=== PATIENT | female | born 1970 | race Hispanic/Latino ===

== ENCOUNTER 2017-08-28 10:58 | Emergency (ER) | payer BC ==
[2017-08-28] MEDS ORDERED: CATAPRES PO ONE (11:34)
--- NOTE | 2017-08-28 11:54 | Emergency Department Report ---
HPI - General Chief Complaint: Dizziness Time Seen by Provider: 08/28/17 11:34 - HPI HPI: Room 3 The patient is a 46-year-old female presenting with a chief complaint of near syncope and numbness. The patient states she was sitting on a chair at work in her usual state of health when she began to feel so she was about to pass out. The patient states her hearing "got weird" as if she was in a barrel, she developed tunnel vision and felt flushed. Patient states she sat down on the floor and the symptoms resolved after total approximate 4-5 minutes. The patient states she then developed left upper extremity paresthesia and numbness to both sides of her face. Patient denied dysarthria, dysphagia or lower extremity paresthesia. Patient denies chest pain, shortness of breath or other losing consciousness. Patient states she has a headache. The patient states she was diagnosed with borderline hypertension but never started on medication in the past Location: [See above] Duration: [See above] Quality: Headache, paresthesia, see above Severity: Moderate Modifying factors: [see above] Context: [see above] Mode of transportation: [not driving] ED Past Medical Hx - Past Medical History Hx Headaches / Migraines: Yes - Surgical History Past Surgical History?: Yes Additional Surgical History: Hysterectomy - Family History Family history: no significant - Social History Smoking Status: Former Smoker (none times years) Substance Use Type: None (denies illicit drug use) - Medications Home Medications: Home Medications Medication Instructions Recorded Confirmed Last Taken Type Cetirizine HCl [Allergy Relief] 10 mg PO DAILY 08/28/17 08/28/17 Unknown History Ibuprofen/Diphenhydramine Cit [Ra 1 each PO HS PRN 08/28/17 08/28/17 Unknown History Ibuprofen Pm Caplet] ED Review of Systems ROS: Stated complaint: NUMBNESS TO FACE AND ARM Other details as noted in HPI Eyes: vision change ENT: other (hearing change) Respiratory: denies: shortness of breath Cardiovascular: denies: chest pain Endocrine: flushing Neurological: headache, numbness, other (near syncopal) Physical Exam - Physical Exam Vital Signs: Vital Signs 08/28/17 08/28/17 11:02 11:11 Temperature 98.4 F Pulse Rate 84 84 Respiratory 18 Rate Blood Pressure 211/104 O2 Sat by Pulse 100 Oximetry Physical Exam: GENERAL: The patient is well-developed well-nourished female sitting on stretcher not appearing to be in acute distress. [] HEENT: Normocephalic. Atraumatic. Extraocular motions are intact. Patient has moist mucous membranes. NECK: Supple. No meningitic signs are noted. Trachea midline CHEST/LUNGS: Clear to auscultation. There is no respiratory distress noted. HEART/CARDIOVASCULAR: Regular. There is no tachycardia. There is no gallop rub or murmur. ABDOMEN: Abdomen is soft, nontender. Patient has normal bowel sounds. There is no abdominal distention. SKIN: There is no rash. There is no edema. There is no diaphoresis. NEURO: The patient is awake, alert, and oriented. The patient is cooperative. Cranial nerves II through XII grossly intact with exception of decreased sensation bilateral V1, V2, V3. No drift. Moves all extremity as well. Patient able to hold lower extremities at 30 for 5 second count. The patient has normal speech MUSCULOSKELETAL: There is no evidence of acute injury. NIHSS= 1 LOC a. Alert= 0 Not alert but arousable to minor stimuli=1 Not alert requires repeated or strong stimuli to move= 2 Responds only reflex motor or unresponsive=3 b. asks month and age answers both correctly= 0 answers one correctly= 1 answers neither correctly= 2 Best Gaze normal= 0 abnormal in one or both but forced deviation or total paresis absent= 1 forced deviation or total gaze paresis= 2 Visual no visual loss= 0 partial hemianopia= 1 complete hemianopia= 2 bilateral hemianopia= 3 Facial Palsy normal= 0 minor paralysis= 1 partial paralysis= 2 complete paralysis= 3 Motor Arm no drift= 0 drift before 10 secs but doesnt hit bed= 1 some effort against gravity= 2 no effort against gravity= 3 no movement= 4 Motor leg no drift= 0 drift before 5 secs but doesnt hit bed= 1 drifts to bed before 5 secs= 2 no effort against gravity= 3 no movement= 4 Limb ataxia absent=0 present in one limb= 1 present in two limbs= 2 Sensory normal= 0 (+)mild sensory loss= 1 severe (unaware of being touched)= 2 Best language mild/some loss of fluency= 1 severe= 2 mute= 3 Dysarthria normal= 0 slurs some words= 1 severe/unintelligible= 2 Extinction and Inattention no abnormality= 0 visual, tactile, auditory or personal inattention= 1 profound (doesnt recognize own hand or orients to only one side= 2 ED Course Vital Signs 08/28/17 08/28/17 11:02 11:11 Temperature 98.4 F Pulse Rate 84 84 Respiratory 18 Rate Blood Pressure 211/104 O2 Sat by Pulse 100 Oximetry - Reevaluation(s) Reevaluation #1: 08/28/17 13:29 Patient's blood pressure is improved (systolic blood pressure 130s) the patient states her symptoms have improved but not completely resolved. Patient states she still has some facial paresthesia. Will admit the patient to the hospital ED Medical Decision Making - Lab Data Result diagrams: 08/28/17 11:57 08/28/17 11:57 Laboratory Tests 08/28/17 08/28/17 08/28/17 11:57 11:57 11:57 WBC 6.2 RBC 4.58 Hgb 13.3 Hct 40.2 MCV 88 MCH 29 MCHC 33 RDW 12.6 L Plt Count 307 Lymph % (Auto) 24.6 Smith % (Auto) 8.4 H Eos % (Auto) 2.2 Baso % (Auto) 1.7 Lymph # 1.5 Smith # 0.5 Eos # 0.1 Baso # 0.1 Seg Neutrophils % 63.1 Seg Neutrophils # 3.9 Sodium 139 Potassium 4.3 Chloride 103.3 Carbon Dioxide 23 Anion Gap 17 BUN 10 Creatinine 0.7 Estimated GFR > 60 BUN/Creatinine Ratio 14 Glucose 83 Calcium 8.7 Total Creatine Kinase 80 CK-MB (CK-2) < 1.0 CK-MB (CK-2) Rel Index 1.2 Troponin T < 0.010 TSH 1.710 Free T4 1.13 Laboratory Tests 08/28/17 08/28/17 08/28/17 11:45 11:57 11:57 WBC 6.2 RBC 4.58 Hgb 13.3 Hct 40.2 MCV 88 MCH 29 MCHC 33 RDW 12.6 L Plt Count 307 Lymph % (Auto) 24.6 Smith % (Auto) 8.4 H Eos % (Auto) 2.2 Baso % (Auto) 1.7 Lymph # 1.5 Smith # 0.5 Eos # 0.1 Baso # 0.1 Seg Neutrophils % 63.1 Seg Neutrophils # 3.9 Sodium 139 Potassium 4.3 Chloride 103.3 Carbon Dioxide 23 Anion Gap 17 BUN 10 Creatinine 0.7 Estimated GFR > 60 BUN/Creatinine Ratio 14 Glucose 83 Calcium 8.7 Total Creatine Kinase 80 CK-MB (CK-2) < 1.0 CK-MB (CK-2) Rel Index 1.2 Troponin T < 0.010 TSH Free T4 Urine Color Yellow Urine Turbidity Clear Urine pH 6.0 Ur Specific [place] 1.013 Urine Protein <15 mg/dl Urine Glucose (UA) Neg Urine Ketones Neg Urine Blood Sm Urine Nitrite Neg Urine Bilirubin Neg Urine Urobilinogen < 2.0 Ur Leukocyte Esterase Mod Urine WBC (Auto) 1.0 Urine RBC (Auto) 2.0 U Epithel Cells (Auto) 4.0 Urine Bacteria (Auto) 1+ Urine Mucus Few 08/28/17 11:57 WBC RBC Hgb Hct MCV MCH MCHC RDW Plt Count Lymph % (Auto) Smith % (Auto) Eos % (Auto) Baso % (Auto) Lymph # Smith # Eos # Baso # Seg Neutrophils % Seg Neutrophils # Sodium Potassium Chloride Carbon Dioxide Anion Gap BUN Creatinine Estimated GFR BUN/Creatinine Ratio Glucose Calcium Total Creatine Kinase CK-MB (CK-2) CK-MB (CK-2) Rel Index Troponin T TSH 1.710 Free T4 1.13 Urine Color Urine Turbidity Urine pH Ur Specific [place] Urine Protein Urine Glucose (UA) Urine Ketones Urine Blood Urine Nitrite Urine Bilirubin Urine Urobilinogen Ur Leukocyte Esterase Urine WBC (Auto) Urine RBC (Auto) U Epithel Cells (Auto) Urine Bacteria (Auto) Urine Mucus - EKG Data -: EKG Interpreted by Ms EKG shows normal: sinus rhythm Rate: normal - EKG Data When compared to previous EKG there are: previous EKG unavailable Interpretation: other (no ischemic changes seen) - Radiology Data Radiology results: report reviewed (CT head), image reviewed (CT head) [facility] [address] [place] [address] Cat Scan Report Signed Patient: GUILHERME SAUNDERS MR#: [id number] : 1970 Acct:[id number] Age/Sex: 46 / F ADM Date: 08/28/17 Loc: ED Attending Dr: Ordering Physician: ELVIN DURBIN MD Date of Service: 08/28/17 Procedure(s): CT head/brain wo con Accession Number(s): [id number] cc: ELVIN DURBIN MD CT HEAD WITHOUT CONTRAST INDICATION: Headache, hypertension, facial and left arm paresthesia. COMPARISON: None similar at this institution. FINDINGS: Noncontrast head CT demonstrates normal ventricles and sulci without acute or recent infarct, hemorrhage, mass effect or midline shift. No abnormal extra-axial fluid collections. Posterior fossa structures and basilar cisterns appear within normal limits. Symmetric eye globes. Clear paranasal sinuses and mastoid air cells. Intact calvarium. Normal overlying scalp soft tissues. Few radiopaque dental material incidentally noted. CONCLUSION: No acute intracranial CT abnormality, as described. Thank you for the opportunity to participate in this patient's care. Transcribed By: RS Dictated By: ASTRID OLIVARES MD Electronically Authenticated By: ASTRID OLIVARES MD Signed Date/Time: 08/28/17 1203 DD/ 1200 TD/TT: 08/28/17 1203 - Differential Diagnosis hypertensive urgency, CVA, TIA, intracranial hemorrhage Critical care attestation.: If time is entered above; I have spent that time in minutes in the direct care of this critically ill patient, excluding procedure time. ED Disposition Clinical Impression: Hypertension, Facial numbness, Left arm numbness, Headache Disposition: OP ADMIT IP TO THIS HOSP Is pt being admited?: Yes Does the pt Need Aspirin: Yes Condition: Fair Instructions: Hypertension (ED) Referrals: PRIMARY CARE, [Primary Care Provider] - 3-5 Days Time of Disposition: 13:30 (hospitalist notified (Dr Rhodes))
[2017-08-28] MEDS ORDERED: NORCO 5/325 PO ONE (11:58)
--- NOTE | 2017-08-28 12:08 | Cat Scan Report ---
CT HEAD WITHOUT CONTRAST INDICATION: Headache, hypertension, facial and left arm paresthesia. COMPARISON: None similar at this institution. FINDINGS: Noncontrast head CT demonstrates normal ventricles and sulci without acute or recent infarct, hemorrhage, mass effect or midline shift. No abnormal extra-axial fluid collections. Posterior fossa structures and basilar cisterns appear within normal limits. Symmetric eye globes. Clear paranasal sinuses and mastoid air cells. Intact calvarium. Normal overlying scalp soft tissues. Few radiopaque dental material incidentally noted. CONCLUSION: No acute intracranial CT abnormality, as described. Thank you for the opportunity to participate in this patient's care.
[2017-08-28 12:43] LABS: Basophils # (Auto) 0.1 K/mm3 (0.0-0.1); Basophils % (Auto) 1.7 % (0.0-1.8); Eosinophils # (Auto) 0.1 K/mm3 (0.0-0.4); Eosinophils % (Auto) 2.2 % (0.0-4.3); Hematocrit 40.2 % (30.3-42.9); Hemoglobin 13.3 gm/dl (10.1-14.3); Lymphocytes # (Auto) 1.5 K/mm3 (1.2-5.4); Lymphocytes % (Auto) 24.6 % (13.4-35.0); Mean Corpuscular HGB Conc 33 % (30-34); Mean Corpuscular Hemoglobin 29 pg (28-32); Mean Corpuscular Volume 88 fl (79-97); Monocytes # (Auto) 0.5 K/mm3 (0.0-0.8); Monocytes % (Auto) 8.4 % (0.0-7.3); Platelet Count 307 K/mm3 (140-440); Red Blood Count 4.58 M/mm3 (3.65-5.03); Red Cell Distribution Width 12.6 % (13.2-15.2)
[2017-08-28 13:07] LABS: BUN/Creatinine Ratio 14; Blood Urea Nitrogen 10 mg/dL (7-17); Calcium 8.7 mg/dL (8.4-10.2); Hemolysis Index 9
[2017-08-28 13:09] LABS: Free T4 (Free Thyroxine) 1.13 ng/dL (0.76-1.46)
[2017-08-28 13:28] LABS: Creatine Kinase MB < 1.0 ng/mL (0.0-4.0)
[2017-08-28 13:30] LABS: Bacteria,Urine 1+ /HPF (Negative); Bilirubin,Urine NEG (Negative); Blood,Urine SM (Negative); Color,Urine Yellow (Yellow); Mucus,Urine FEW /HPF; Protein,Urine <15 mg/dL mg/dL (Negative); Urobilinogen,Urine < 2.0 mg/dL (<2.0)
[2017-08-28] MEDS ORDERED: ASPIRIN PO ONE (13:31)
--- NOTE | 2017-08-28 14:26 | Event Note ---
Date: 08/28/17
[2017-08-28] MEDS ORDERED: ASPIRIN ONE (14:27)
[2017-08-28 15:30] VITALS: BP 122/88
[2017-08-28 15:35] LABS: Amphetamine Screen,Urine PRESUMPTIVE NEGATIVE; Benzodiazepines Screen,Urine PRESUMPTIVE NEGATIVE; Cannabinoid Screen,Urine PRESUMPTIVE NEGATIVE; Cocaine Screen,Urine PRESUMPTIVE NEGATIVE; Methadone Screen,Urine PRESUMPTIVE NEGATIVE; Opiate Screen,Urine PRESUMPTIVE NEGATIVE
== END 2017-08-28 14:40 | disposition admitted as inpatient to this hospital (09) ==
LOC: ED 10:58 → 4A 13:44 → UNDOADMIN 13:44 → ED 14:40
DX: I10 Essential (primary) hypertension (principal); R20.0 Anesthesia of skin; R51 Headache
CPT/HCPCS: 36415; 70450; 80048; 80307; 81001; 82550; 82553; 84439; 84443; 84484; 85025; 93005; 93010

== ENCOUNTER 2017-09-01 13:27 | Emergency (ER) | payer BC ==
[2017-09-01 14:18] LABS: Basophils # (Auto) 0.1 K/mm3 (0.0-0.1); Basophils % (Auto) 0.7 % (0.0-1.8); Eosinophils # (Auto) 0.1 K/mm3 (0.0-0.4); Eosinophils % (Auto) 1.2 % (0.0-4.3); Hematocrit 41.2 % (30.3-42.9); Hemoglobin 14.2 gm/dl (10.1-14.3); Lymphocytes # (Auto) 2.2 K/mm3 (1.2-5.4); Lymphocytes % (Auto) 24.8 % (13.4-35.0); Mean Corpuscular HGB Conc 34 % (30-34); Mean Corpuscular Hemoglobin 30 pg (28-32); Mean Corpuscular Volume 87 fl (79-97); Monocytes # (Auto) 0.7 K/mm3 (0.0-0.8); Monocytes % (Auto) 7.4 % (0.0-7.3); Platelet Count 314 K/mm3 (140-440); Red Blood Count 4.75 M/mm3 (3.65-5.03); Red Cell Distribution Width 12.8 % (13.2-15.2)
[2017-09-01 14:27] LABS: BUN/Creatinine Ratio 18; Blood Urea Nitrogen 11 mg/dL (7-17); Calcium 8.8 mg/dL (8.4-10.2); Hemolysis Index 6
[2017-09-01] MEDS ORDERED: CATAPRES PO ONE (15:15)
[2017-09-01] MEDS ORDERED: TYLENOL PO ONE (16:09)
[2017-09-01] MEDS ORDERED: ASPIRIN PO ONE (19:01)
[2017-09-01 19:36] LABS: INR 0.92 (0.87-1.13)
[2017-09-01 19:37] LABS: Partial Thromboplastin Time 29.7 Sec. (24.2-36.6)
[2017-09-01 19:55] LABS: BUN/Creatinine Ratio 20; Blood Urea Nitrogen 10 mg/dL (7-17); Calcium 8.8 mg/dL (8.4-10.2); Hemolysis Index 18; Lipase 30 units/L (13-60)
[2017-09-01 20:22] LABS: Bilirubin,Urine NEG (Negative); Blood,Urine SM (Negative); Color,Urine Yellow (Yellow); Mucus,Urine 1+ /HPF; Protein,Urine <15 mg/dL mg/dL (Negative); Urobilinogen,Urine < 2.0 mg/dL (<2.0)
--- NOTE | 2017-09-01 20:57 | XRay Report ---
FINAL REPORT PROCEDURE: XR CHEST 1V AP TECHNIQUE: Chest radiograph anteroposterior view. CPT 11295 HISTORY: Chest Pain COMPARISON: No prior studies are available for comparison. FINDINGS: Heart: Normal. Mediastinum/Vessels: Normal. Lungs/Pleural space: Lungs are clear and expanded. There are no infiltrates, effusions or pneumothoraces. Bony thorax: No acute osseous abnormality. Life support devices: None. IMPRESSION: No acute cardiopulmonary abnormality.
[2017-09-01 22:40] VITALS: BP 129/82
--- NOTE | 2017-09-01 22:56 | Emergency Department Report ---
ED Chest Pain HPI - General Chief Complaint: Chest Pain Stated Complaint: HIGH BP/CHEST TIGHTNESS Time Seen by Provider: 09/01/17 18:25 Source: patient Mode of arrival: Ambulatory Limitations: No Limitations - History of Present Illness Severity scale (0 -10): 3 - Related Data Home Medications Medication Instructions Recorded Confirmed Last Taken Cetirizine HCl [Allergy Relief] 10 mg PO DAILY 08/28/17 08/28/17 Unknown Ibuprofen/Diphenhydramine Cit [Ra 1 each PO HS PRN 08/28/17 08/28/17 Unknown Ibuprofen Pm Caplet] Allergies Allergy/AdvReac Type Severity Reaction Status Date / Time No Known Allergies Allergy Verified 09/01/17 13:31 ED Review of Systems ROS: Stated complaint: HIGH BP/CHEST TIGHTNESS Other details as noted in HPI ED Past Medical Hx - Past Medical History Previous Medical History?: Yes Hx Hypertension: Yes Hx Headaches / Migraines: Yes - Surgical History Past Surgical History?: Yes Additional Surgical History: Hysterectomy - Social History Smoking Status: Former Smoker Substance Use Type: Prescribed - Medications Home Medications: Home Medications Medication Instructions Recorded Confirmed Last Taken Type Cetirizine HCl [Allergy Relief] 10 mg PO DAILY 08/28/17 08/28/17 Unknown History Ibuprofen/Diphenhydramine Cit [Ra 1 each PO HS PRN 08/28/17 08/28/17 Unknown History Ibuprofen Pm Caplet] ED Physical Exam - General Limitations: No Limitations ED Course Vital Signs 09/01/17 09/01/17 09/01/17 13:31 15:20 15:22 Temperature 98.1 F Pulse Rate 106 H 93 H 91 H Respiratory 18 16 Rate Blood Pressure 201/113 171/105 Blood Pressure [Left] Blood Pressure 171/105 [Right] O2 Sat by Pulse 100 100 Oximetry 09/01/17 09/01/17 09/01/17 16:06 17:14 18:00 Temperature Pulse Rate 85 73 75 Respiratory 18 18 13 Rate Blood Pressure Blood Pressure [Left] Blood Pressure 166/113 125/82 [Right] O2 Sat by Pulse 100 100 Oximetry 09/01/17 09/01/17 09/01/17 18:11 18:16 18:30 Temperature 98.9 F Pulse Rate 72 69 67 Respiratory 12 9 L 13 Rate Blood Pressure 127/78 127/78 Blood Pressure 127/78 [Left] Blood Pressure [Right] O2 Sat by Pulse 100 100 99 Oximetry 09/01/17 09/01/17 09/01/17 18:46 19:00 19:10 Temperature 98.4 F Pulse Rate 71 72 71 Respiratory 12 19 16 Rate Blood Pressure 127/78 122/90 Blood Pressure 122/90 [Left] Blood Pressure [Right] O2 Sat by Pulse 100 100 100 Oximetry 09/01/17 09/01/17 09/01/17 19:16 19:30 19:46 Temperature Pulse Rate 65 75 68 Respiratory 14 12 17 Rate Blood Pressure 122/90 122/90 140/83 Blood Pressure [Left] Blood Pressure [Right] O2 Sat by Pulse 100 100 Oximetry 09/01/17 09/01/17 09/01/17 20:00 20:16 20:30 Temperature Pulse Rate 77 70 73 Respiratory 13 11 L 11 L Rate Blood Pressure 140/74 140/83 132/75 Blood Pressure [Left] Blood Pressure [Right] O2 Sat by Pulse 99 99 100 Oximetry 09/01/17 09/01/17 09/01/17 20:46 21:00 21:16 Temperature Pulse Rate 73 76 76 Respiratory 11 L 10 L 14 Rate Blood Pressure 140/74 125/68 132/75 Blood Pressure [Left] Blood Pressure [Right] O2 Sat by Pulse 99 100 100 Oximetry 09/01/17 09/01/17 09/01/17 21:30 21:46 22:00 Temperature Pulse Rate 71 70 Respiratory 14 10 L 10 L Rate Blood Pressure 121/77 125/68 136/78 Blood Pressure [Left] Blood Pressure [Right] O2 Sat by Pulse 99 99 98 Oximetry 09/01/17 09/01/17 22:16 22:30 Temperature Pulse Rate Respiratory 15 13 Rate Blood Pressure 136/78 129/82 Blood Pressure [Left] Blood Pressure [Right] O2 Sat by Pulse 99 97 Oximetry ED Medical Decision Making - Lab Data Result diagrams: 09/01/17 13:53 09/01/17 19:16 Critical care attestation.: If time is entered above; I have spent that time in minutes in the direct care of this critically ill patient, excluding procedure time. ED Disposition Clinical Impression: Chest pain, Hypertension Disposition: DC-01 TO HOME OR SELFCARE Is pt being admited?: No Does the pt Need Aspirin: No Condition: Good Instructions: Chest Pain (ED), Hypertension (ED) Additional Instructions: return sooner if worse or if further concerns Referrals: SAURABH NICHOLAS MD [Primary Care Provider] - 3-5 Days
== END 2017-09-01 23:11 | disposition home or self-care (01) ==
LOC: ED 13:27
DX: I10 Essential (primary) hypertension (principal); Z90.710 Acquired absence of both cervix and uterus; Z87.891 Personal history of nicotine dependence
CPT/HCPCS: 36415; 71045; 80048; 81001; 83690; 84484; 84703; 85025; 85610; 85730; 93005; 93010; 99284